=== PATIENT | male | born 1950 | race Caucasian/White ===

== ENCOUNTER → 2017-01-23 | Outpatient (CLI) | payer MEDICARE, OTHER ==
[~2017-01-23] MED LIST: ADVAIR 250/28 DISKUS IH; ALDACTONE 25MG25 M1 PO; ALDACTONE 25MG25 MG PO; AMLOPIDINE PO; AMOXICILLIN 50500 MG PO; ASPIRIN 32325 MG/TAB PO; ASPIRIN 81M81 MG/TA2 PO; B-121000 MCG PO; CARAFATE 1GM1 G PO; CATAPRES 0.1MG0.1 MG PO; CATAPRES0.2 MG PO; CELEBREX 200MG200 MG PO; CIPRO 500MG TA500 MG PO; COREG CR40 MG PO; COREG CR80 MG PO; COZAAR100 MG PO; DEMADEX 20MG20 M1 PO; DEMADEX 20MG20 MG PO; DEPO-TESTOS200 MG/M1 IM; DIOVAN 160MG160 MG PO; DIOVAN320 MG PO; FISH OIL CONC1000 MG PO; GLIPIZIDE5 MG PO; GLUCOPHAGE XR500 M1 PO; GLUCOPHAGE1000 MG PO; GLUCOTROL 5M5 MG/TAB; JANUVIA50 MG PO; KEFLEX750 MG PO; LANTUS SOLOS100 U/ML SQ; LANTUS100 U/ML SQ; LIPITOR 40MG TA40 MG PO; LIPITOR40 MG PO; MELAT3MGTAB PO; METFORMIN HCL1000 MG PO; MVI PO; NEXIUM 40MG40 MG PO; NEXIUM40 MG PO; NITROSTAT0.4 MG/TAB SL; NORCO 325 MG-7.1 TAB PO; NORVASC 10MG10 MG PO; PLAVIX 75MG TAB75 MG PO; PRESERVISION1 SGL PO; PRILOSEC 20MG20 MG PO; QUININE SULFAT324 MG PO; RT ADVAIR 228 DISKUS IH; SPIRIVA RE2.5 MCG/Ac IH; TRICOR145 MG PO; TRIGLIDE PO; TYLENOL 325MG325 MG PO; TYLENOL W/COD1 UDTAB PO; ULTRAM 50MG TAB50 MG PO; ULTRAM50 MG PO; UROXATRAL10 M1 PO; VIAGRA100 M1 PO; VIAGRA100 MG PO; VITAMIN B12; VITAMIN C500 MG PO; VITAMIN D31000 I1 PO; ZETIA 10MG TAB10 MG PO; ZETIA10 MG PO
== END ==
LOC: COL.RAD 07:56
DX: M25.512 Pain in left shoulder (principal); M25.511 Pain in right shoulder
CPT/HCPCS: J3301; Q9967

== ENCOUNTER → 2017-05-19 | Outpatient (CLI) | payer MEDICARE, OTHER | LOC: COL.RAD 08:04 | DX: M19.011 Primary osteoarthritis, right shoulder (principal); M19.012 Primary osteoarthritis, left shoulder | CPT/HCPCS: J3301; Q9967 ==

== ENCOUNTER 2017-05-25 07:19 | Outpatient (CLI) | payer MEDICARE, OTHER ==
[~2017-05-25] VITALS: Ht 180.3 cm; Wt 99.5 kg
[2017-05-25] VITALS (17 sets, daily range): BP systolic 131–190; BP diastolic 82–95; PULSE 59–71; TEMP 96.7–97.9
[~2017-05-25 07:19] MED LIST changes: -GLUCOPHAGE XR500 M1 PO; -JANUVIA50 MG PO; -LANTUS SOLOS100 U/ML SQ; -PLAVIX 75MG TAB75 MG PO; -PRESERVISION1 SGL PO; -PRILOSEC 20MG20 MG PO; -SPIRIVA RE2.5 MCG/Ac IH; -TYLENOL 325MG325 MG PO
[2017-05-25] MEDS ORDERED: LANTUS SOLOS100 U/ML SQ (08:09)
[2017-05-25] MEDS ORDERED: GLUCOPHAGE XR500 M1 PO (08:12)
[2017-05-25] MEDS ORDERED: TYLENOL 325MG325 MG PO (08:14)
[2017-05-25] MEDS ORDERED: PLAVIX 75MG TAB75 MG PO (08:17)
[2017-05-25] MEDS ORDERED: PRESERVISION1 SGL PO (08:18)
[2017-05-25] MEDS ORDERED: PRILOSEC 20MG20 MG PO (08:20)
[2017-05-25] MEDS ORDERED: JANUVIA50 MG PO (08:20)
[2017-05-25] MEDS ORDERED: SPIRIVA RE2.5 MCG/Ac IH (08:22)
[2017-05-25 08:24] LABS: HEMOGLOBIN 12.2 g/dl (13.5-18.0); MEAN CELL VOLUME 91 fl (80.0-100.0); MEAN CORPUSCULAR HEMOGLOBIN 30 pg (27.0-31.0); MEAN CORPUSCULAR HGB CONC 33 g/dl (33.0-37.0); MEAN PLATELET VOLUME 9.8 fl (7.4-10.4); PLATELET COUNT 196 K/mm3 (130-400); RED BLOOD COUNT 4.05 M/mm3 (4.20-5.60); REDCELL DISTRIBUTION WIDTH-CV 13.1 % (11.5-14.5); WHITE BLOOD COUNT 6.9 K/mm3 (4.8-10.8)
[2017-05-25 08:29] LABS: HEMATOCRIT 36.8 % (42.0-52.0)
[2017-05-25 08:31] LABS: CALCIUM 8.8 mg/dL (8.4-10.2); CREATININE, serum 0.96 mg/dL (0.66-1.25); POTASSIUM 4.5 mmol/L (3.4-5.0)
[2017-05-25 08:32] LABS: PROTHROMBIN TIME 11.4 SECONDS (9.7-12.8)
== END 2017-05-25 12:00 | disposition home or self-care (01) ==
LOC: EUO 07:19 → COL.RAD 07:30 → EUO 12:00
PROVIDERS: Internal Medicine Cardiovascular Disease
DX: M19.012 Primary osteoarthritis, left shoulder (principal)
CPT/HCPCS: J2175; J2250

== ENCOUNTER 2017-06-23 14:33 | Emergency (ER) | payer MEDICARE, OTHER ==
[~2017-06-23] VITALS: Ht 180.3 cm; Wt 101.8 kg
[~2017-06-23 14:33] MED LIST changes: +GLUCOPHAGE XR500 M1 PO; +JANUVIA50 MG PO; +LANTUS SOLOS100 U/ML SQ; +PLAVIX 75MG TAB75 MG PO; +PRESERVISION1 SGL PO; +PRILOSEC 20MG20 MG PO; +SPIRIVA RE2.5 MCG/Ac IH; +TYLENOL 325MG325 MG PO
[2017-06-23 14:42] VITALS: BP 124/70; TEMP 98.2
[2017-06-23 16:10] LABS: BASO % 0.5 % (0.0-2.0); EOS # 0.1 (0.0-0.7); EOS % 1.9 % (0-4.0); GRAN # 3.9 (1.4-6.5); GRAN % 65.9 % (42.2-75.2); HEMATOCRIT 34.1 % (42.0-52.0); HEMOGLOBIN 11.2 g/dl (13.5-18.0); LYMPH # 1.4 (1.2-3.4); LYMPH % 23.1 % (20.0-51.0); MEAN CELL VOLUME 90 fl (80.0-100.0); MEAN CORPUSCULAR HEMOGLOBIN 30 pg (27.0-31.0); MEAN CORPUSCULAR HGB CONC 33 g/dl (33.0-37.0); MEAN PLATELET VOLUME 9.7 fl (7.4-10.4); MONO # 0.5 (0.1-0.6); MONO % 8.4 % (1.7-9.3); PLATELET COUNT 203 K/mm3 (130-400); RED BLOOD COUNT 3.78 M/mm3 (4.20-5.60); REDCELL DISTRIBUTION WIDTH-CV 13.3 % (11.5-14.5); WHITE BLOOD COUNT 5.8 K/mm3 (4.8-10.8)
[2017-06-23 16:16] LABS: ADJUSTED CALCIUM 9.2 mg/dL (8.4-10.2); BILIRUBIN,TOTAL 0.6 mg/dL (0.0-1.0); CALCIUM 9.2 mg/dL (8.4-10.2); CREATININE, serum 2.51 mg/dL (0.66-1.25); MAGNESIUM 1.6 mg/dL (1.6-2.3); PHOSPHOROUS 3.9 mg/dL (2.5-4.5); POTASSIUM 4.2 mmol/L (3.4-5.0); TOTAL PROTEIN 6.6 gm/dL (6.4-8.2)
[2017-06-23 16:30] LABS: ERYTHROCYTE SEDIMENTATION RATE 15 mm/hr (0-30)
[2017-06-23 17:24] LABS: PH 5 (5-8); SQUAMOUS EPITHELIAL 0-2 /hpf; URINE APPEARANCE Clear; URINE BACTERIA None Seen /hpf; URINE BILIRUBIN Negative (NEGATIVE); URINE BLOOD Negative (NEGATIVE); URINE COLOR Yellow; URINE GLUCOSE Negative (NEGATIVE); URINE KETONE Negative (NEGATIVE); URINE RBC 0-2 /hpf; URINE UROBILINOGEN Negative (NEGATIVE); URINE WBC 0-2 /hpf
[2017-06-23 19:04] VITALS: PULSE 70
== END 2017-06-23 19:08 | disposition home or self-care (01) ==
LOC: COL.ER 14:33
PROVIDERS: Emergency Medicine
DX: N17.9 Acute kidney failure, unspecified (principal); I13.0 Hypertensive heart and chronic kidney disease with heart failure and stage 1 through stage 4 chronic kidney disease, or unspecified chronic kidney disease; N18.9 Chronic kidney disease, unspecified; I50.9 Heart failure, unspecified; E11.22 Type 2 diabetes mellitus with diabetic chronic kidney disease; Z79.82 Long term (current) use of aspirin; Z79.84 Long term (current) use of oral hypoglycemic drugs; Z95.0 Presence of cardiac pacemaker
CPT/HCPCS: J7050

== ENCOUNTER 2017-07-26 13:46 | Observation (INO) | payer MEDICARE, OTHER ==
[~2017-07-26] VITALS: Ht 180.3 cm; Wt 98.7 kg
[2017-07-26 15:05] VITALS: BP 115/60; PULSE 72; TEMP 97.8
[2017-07-26] MEDS ORDERED: ULTRAM 50MG TAB50 MG PO (15:19)
[2017-07-26 20:26] VITALS: BP 131/65; PULSE 77; TEMP 99
[2017-07-26 23:46] VITALS: BP 145/74; PULSE 69; TEMP 97.9
[2017-07-27] VITALS (23 sets, daily range): BP systolic 107–154; BP diastolic 53–104; PULSE 62–71; TEMP 97.7–98.8
[2017-07-27 06:51] LABS: BASO % 0.4 % (0.0-2.0); EOS # 0.2 (0.0-0.7); EOS % 2.8 % (0-4.0); GRAN # 4.9 (1.4-6.5); GRAN % 62.1 % (42.2-75.2); LYMPH # 1.8 (1.2-3.4); LYMPH % 22.3 % (20.0-51.0); MEAN CELL VOLUME 90 fl (80.0-100.0); MEAN CORPUSCULAR HGB CONC 32 g/dl (33.0-37.0); MEAN PLATELET VOLUME 9.7 fl (7.4-10.4); PLATELET COUNT 199 K/mm3 (130-400); RED BLOOD COUNT 3.73 M/mm3 (4.20-5.60); WHITE BLOOD COUNT 7.9 K/mm3 (4.8-10.8)
[2017-07-27 06:59] LABS: HEMATOCRIT 33.6 % (42.0-52.0); HEMOGLOBIN 10.9 g/dl (13.5-18.0); MEAN CORPUSCULAR HEMOGLOBIN 29 pg (27.0-31.0)
[2017-07-27 07:14] LABS: ADJUSTED CALCIUM 9.5 mg/dL (8.4-10.2); ALANINE AMINOTRANSFERASE 22 U/L (21-72); ALBUMIN 3.8 gm/dL (3.5-5.0); ALKALINE PHOSPHATASE 76 U/L (50-136); ANION GAP 11 mmol/L (7-16); BILIRUBIN,TOTAL 0.8 mg/dL (0.0-1.0); BLOOD UREA NITROGEN 27 mg/dL (9-20); CALCIUM 9.3 mg/dL (8.4-10.2); CARBON DIOXIDE 24 mmol/L (22-30); CHLORIDE 106 mmol/L (98-107); CHOLESTEROL 102 mg/dL (120-200); CREATININE, serum 1.58 mg/dL (0.66-1.25); GLUCOSE 115 mg/dL (74-106); HDL CHOLESTEROL 22 mg/dL; LDL CHOLESTEROL 13 mg/dL; MAGNESIUM 1.7 mg/dL (1.6-2.3); POTASSIUM 4.2 mmol/L (3.4-5.0); SODIUM 141 mmol/L (137-145); TOTAL PROTEIN 6.6 gm/dL (6.4-8.2); TRIGLYCERIDE 336 mg/dL
[2017-07-27 07:26] LABS: TROPONIN-I < 0.012 ng/mL (0.000-0.034)
[2017-07-27 08:03] LABS: INR 1.3 (0.8-3.0); PROTHROMBIN TIME 15.1 SECONDS (9.7-12.8)
[2017-07-27 08:05] LABS: PARTIAL THROMBOPLASTIN TIME 35.8 SECONDS (26.0-37.0)
[2017-07-27 08:38] LABS: PH 5 (5-8); SQUAMOUS EPITHELIAL None Seen /hpf; URINE APPEARANCE Clear; URINE BACTERIA Many /hpf; URINE BILIRUBIN Negative (NEGATIVE); URINE BLOOD Negative (NEGATIVE); URINE COLOR Yellow; URINE GLUCOSE Negative (NEGATIVE); URINE KETONE Negative (NEGATIVE); URINE UROBILINOGEN Negative (NEGATIVE)
[2017-07-27] MEDS ORDERED: MULTAQ400 MG PO (09:43)
[2017-07-27] MEDS ORDERED: ELIQUIS 2.5 PO (09:43)
[2017-07-28 00:11] VITALS: BP 107/53; PULSE 69; TEMP 98.8
[2017-07-28 03:22] VITALS: BP 106/56; PULSE 64; TEMP 98.3
[2017-07-28 05:55] VITALS: BP 106/56; PULSE 64; TEMP 98.3
[2017-07-28 08:02] LABS: BASO % 0.6 % (0.0-2.0); EOS # 0.2 (0.0-0.7); EOS % 3.7 % (0-4.0); GRAN # 3.6 (1.4-6.5); GRAN % 55.1 % (42.2-75.2); LYMPH # 1.8 (1.2-3.4); MEAN CELL VOLUME 91 fl (80.0-100.0); MEAN CORPUSCULAR HGB CONC 32 g/dl (33.0-37.0); MEAN PLATELET VOLUME 10.2 fl (7.4-10.4); MONO # 0.8 (0.1-0.6); MONO % 12.1 % (1.7-9.3); PLATELET COUNT 201 K/mm3 (130-400); RED BLOOD COUNT 3.84 M/mm3 (4.20-5.60); WHITE BLOOD COUNT 6.4 K/mm3 (4.8-10.8)
[2017-07-28 08:07] VITALS: BP 121/56; PULSE 66; TEMP 98.6
[2017-07-28 08:10] LABS: HEMATOCRIT 34.9 % (42.0-52.0); HEMOGLOBIN 11.2 g/dl (13.5-18.0); MEAN CORPUSCULAR HEMOGLOBIN 29 pg (27.0-31.0)
[2017-07-28 08:18] LABS: CALCIUM 9.1 mg/dL (8.4-10.2); CREATININE, serum 1.76 mg/dL (0.66-1.25); MAGNESIUM 1.9 mg/dL (1.6-2.3); POTASSIUM 4.4 mmol/L (3.4-5.0)
[2017-07-28 11:35] VITALS: BP 118/59; PULSE 62; TEMP 98
[2017-07-28] MEDS ORDERED: SEPTRA DS 8001 TAB PO (12:30)
[2017-07-28] MEDS ORDERED: COLCRYS0.6 MG PO (12:30)
== END 2017-07-28 14:12 | disposition home or self-care (01) ==
LOC: MEDICAL 13:46
PROVIDERS: Internal Medicine; Internal Medicine Cardiovascular Disease; Nurse Practitioner Family
DX: R07.89 Other chest pain (principal); I25.10 Atherosclerotic heart disease of native coronary artery without angina pectoris; I48.91 Unspecified atrial fibrillation; M25.572 Pain in left ankle and joints of left foot; N39.0 Urinary tract infection, site not specified; N41.9 Inflammatory disease of prostate, unspecified; Z95.0 Presence of cardiac pacemaker; R00.1 Bradycardia, unspecified; R51 Headache; J44.9 Chronic obstructive pulmonary disease, unspecified; G47.33 Obstructive sleep apnea (adult) (pediatric); I95.1 Orthostatic hypotension; R42 Dizziness and giddiness; K21.9 Gastro-esophageal reflux disease without esophagitis; I34.0 Nonrheumatic mitral (valve) insufficiency; I34.1 Nonrheumatic mitral (valve) prolapse; Z98.84 Bariatric surgery status; E66.9 Obesity, unspecified; Z85.9 Personal history of malignant neoplasm, unspecified; M77.32 Calcaneal spur, left foot; Z87.891 Personal history of nicotine dependence; N17.9 Acute kidney failure, unspecified; E11.22 Type 2 diabetes mellitus with diabetic chronic kidney disease; I12.9 Hypertensive chronic kidney disease with stage 1 through stage 4 chronic kidney disease, or unspecified chronic kidney disease; N18.9 Chronic kidney disease, unspecified; E11.40 Type 2 diabetes mellitus with diabetic neuropathy, unspecified; Z86.73 Personal history of transient ischemic attack (TIA), and cerebral infarction without residual deficits; E78.5 Hyperlipidemia, unspecified; Q21.1 Atrial septal defect
CPT/HCPCS: 99232-AI; C1760; C1894; G0378; G0379; G8978-GP; G8979-GP; J2250; J3010; Q9967

== ENCOUNTER → 2017-08-31 | Outpatient (CLI) | payer MEDICARE, OTHER ==
[~2017-08-31] MED LIST changes: +COLCRYS0.6 MG PO; +ELIQUIS 2.5 PO; +MULTAQ400 MG PO; +SEPTRA DS 8001 TAB PO
== END ==
LOC: COL.RAD 09:25
DX: M19.011 Primary osteoarthritis, right shoulder (principal); M19.012 Primary osteoarthritis, left shoulder
CPT/HCPCS: J3301; Q9967

== ENCOUNTER → 2017-12-07 | Outpatient (CLI) | payer MEDICARE, OTHER | LOC: COL.RAD 07:32 | DX: M19.012 Primary osteoarthritis, left shoulder (principal); M19.011 Primary osteoarthritis, right shoulder | CPT/HCPCS: J3301; Q9967 ==

== ENCOUNTER 2018-01-10 10:17 | Inpatient (IN) | payer MEDICARE, OTHER ==
[~2018-01-10] VITALS: Ht 180.3 cm; Wt 104.0 kg
[2018-02-26] VITALS (9 sets, daily range): BP systolic 108–131; BP diastolic 53–70; PULSE 63–91; TEMP 97.9–98.5
[2018-02-26 17:16] LABS: BASO % 0.2 % (0.0-2.0); GRAN # 9.4 (1.4-6.5); GRAN % 87.8 % (42.2-75.2); HEMATOCRIT 37.7 % (42.0-52.0); HEMOGLOBIN 12.5 g/dl (13.5-18.0); LYMPH % 8.9 % (20.0-51.0); MEAN CELL VOLUME 91 fl (80.0-100.0); MEAN CORPUSCULAR HEMOGLOBIN 30 pg (27.0-31.0); MEAN CORPUSCULAR HGB CONC 33 g/dl (33.0-37.0); MEAN PLATELET VOLUME 9.7 fl (7.4-10.4); MONO # 0.3 (0.1-0.6); MONO % 2.8 % (1.7-9.3); PLATELET COUNT 167 K/mm3 (130-400); RED BLOOD COUNT 4.15 M/mm3 (4.20-5.60); REDCELL DISTRIBUTION WIDTH-CV 13.7 % (11.5-14.5)
[2018-02-26 17:23] LABS: ALBUMIN 3.8 gm/dL (3.5-5.0); BILIRUBIN,TOTAL 0.3 mg/dL (0.0-1.0); CALCIUM 8.9 mg/dL (8.4-10.2); CREATININE, serum 1.61 mg/dL (0.66-1.25); POTASSIUM 5.2 mmol/L (3.4-5.0); TOTAL PROTEIN 6.7 gm/dL (6.4-8.2)
[2018-02-27 00:25] VITALS: BP 11/64; BP 113/64; PULSE 82; TEMP 98.4
[2018-02-27 04:42] VITALS: BP 125/53; PULSE 74; TEMP 98.1
[2018-02-27 06:16] LABS: BASO % 0.1 % (0.0-2.0); GRAN # 10.3 (1.4-6.5); HEMATOCRIT 33.4 % (42.0-52.0); LYMPH # 1.1 (1.2-3.4); LYMPH % 8.6 % (20.0-51.0); MEAN CELL VOLUME 92 fl (80.0-100.0); MEAN CORPUSCULAR HEMOGLOBIN 30 pg (27.0-31.0); MEAN CORPUSCULAR HGB CONC 33 g/dl (33.0-37.0); MEAN PLATELET VOLUME 10.1 fl (7.4-10.4); MONO # 0.9 (0.1-0.6); MONO % 6.9 % (1.7-9.3); PLATELET COUNT 163 K/mm3 (130-400); RED BLOOD COUNT 3.62 M/mm3 (4.20-5.60); REDCELL DISTRIBUTION WIDTH-CV 13.4 % (11.5-14.5)
[2018-02-27 06:24] LABS: CALCIUM 8.5 mg/dL (8.4-10.2); CREATININE, serum 1.49 mg/dL (0.66-1.25); POTASSIUM 4.6 mmol/L (3.4-5.0)
[2018-02-27 07:59] VITALS: BP 140/74; PULSE 90; TEMP 99.4
[2018-02-27 11:27] VITALS: BP 117/52; PULSE 69; TEMP 97.9
[2018-02-27 15:46] VITALS: BP 130/60; PULSE 70; TEMP 97.6
[2018-02-27 20:48] VITALS: BP 145/61; PULSE 65; TEMP 97.9
[2018-02-28 00:16] VITALS: BP 123/75; PULSE 60; TEMP 97.9
[2018-02-28 04:45] VITALS: BP 152/80; PULSE 71; TEMP 98.2
[2018-02-28 07:50] VITALS: BP 136/62; PULSE 59; TEMP 97.8
[2018-02-28 11:30] VITALS: BP 112/59; PULSE 61; TEMP 98.4
[2018-02-28] MEDS ORDERED: NORCO 325 MG-7.1 TAB PO (15:02)
[2018-02-28] MEDS ORDERED: ROXICODONE 55 MG/TAB PO (15:04)
[2018-02-28] MEDS ORDERED: COLCRYS0.6 MG PO (15:16)
[2018-02-28 15:43] VITALS: BP 102/55; PULSE 61; TEMP 98.1
== END 2018-02-28 16:44 | disposition home health service (06) | DRG 483 ==
LOC: JCC 02-26 06:32
PROVIDERS: Orthopaedic Surgery; Physician Assistant
PROC: 0RRK0JZ Replacement of Left Shoulder Joint with Synthetic Substitute, Open Approach (ICD-10-PCS; principal; 2018-02-26 10:15)
DX: M19.012 Primary osteoarthritis, left shoulder (principal); Q21.1 Atrial septal defect; I12.9 Hypertensive chronic kidney disease with stage 1 through stage 4 chronic kidney disease, or unspecified chronic kidney disease; E11.22 Type 2 diabetes mellitus with diabetic chronic kidney disease; N18.9 Chronic kidney disease, unspecified; I48.91 Unspecified atrial fibrillation; E11.42 Type 2 diabetes mellitus with diabetic polyneuropathy; I25.10 Atherosclerotic heart disease of native coronary artery without angina pectoris; J44.9 Chronic obstructive pulmonary disease, unspecified; Z95.0 Presence of cardiac pacemaker; Z79.01 Long term (current) use of anticoagulants; Z87.891 Personal history of nicotine dependence; M10.9 Gout, unspecified; E87.5 Hyperkalemia; Z85.828 Personal history of other malignant neoplasm of skin
CPT/HCPCS: 99222; 99232-AI; A4314; C1713; C1776; J0171; J0330; J0690; J1100; J1815; J1940; J2250; J2405; J2704; J2710; J2795; J3010; J7030

== ENCOUNTER → 2018-02-01 | Outpatient (CLI) | payer MEDICARE, OTHER | LOC: COL.RAD 07:01 | DX: M19.012 Primary osteoarthritis, left shoulder (principal); Z95.0 Presence of cardiac pacemaker ==

== ENCOUNTER → 2018-02-15 | Outpatient (CLI) | payer MEDICARE, OTHER ==
[2018-02-15 10:27] LABS: HIV 1/2 Antibodies Non-Reactive; HIV-1p24 Antigen Non-Reactive
== END ==
LOC: COL.LAB 09:31
PROVIDERS: Orthopaedic Surgery
DX: Z01.812 Encounter for preprocedural laboratory examination (principal); M19.012 Primary osteoarthritis, left shoulder

== ENCOUNTER 2018-06-08 09:12 | Inpatient (IN) | payer MEDICARE, OTHER ==
[~2018-06-08] VITALS: Ht 180.3 cm; Wt 116.1 kg
[~2018-06-08 09:12] MED LIST changes: +ROXICODONE 55 MG/TAB PO
[2018-06-11 09:51] VITALS: BP 153/82; PULSE 61; TEMP 97.4
[2018-06-11] MEDS ORDERED: COLACE 100100 MG/CAP PO (10:20)
[2018-06-11 10:21] LABS: BASO # 0.1 (0.0-0.2); BASO % 0.6 % (0.0-2.0); EOS # 0.2 (0.0-0.7); EOS % 1.8 % (0-4.0); GRAN # 6.3 (1.4-6.5); GRAN % 70.2 % (42.2-75.2); HEMATOCRIT 42.4 % (42.0-52.0); HEMOGLOBIN 13.7 g/dl (13.5-18.0); LYMPH # 1.7 (1.2-3.4); LYMPH % 18.9 % (20.0-51.0); MEAN CELL VOLUME 92 fl (80.0-100.0); MEAN CORPUSCULAR HEMOGLOBIN 30 pg (27.0-31.0); MEAN CORPUSCULAR HGB CONC 32 g/dl (33.0-37.0); MEAN PLATELET VOLUME 10.2 fl (7.4-10.4); MONO # 0.7 (0.1-0.6); MONO % 8.2 % (1.7-9.3); PLATELET COUNT 189 K/mm3 (130-400); RED BLOOD COUNT 4.63 M/mm3 (4.20-5.60); REDCELL DISTRIBUTION WIDTH-CV 13.7 % (11.5-14.5)
[2018-06-11] MEDS ORDERED: TYLENOL 325MG325 MG PO (10:21)
[2018-06-11] MEDS ORDERED: FLOMAX 0.40.4 MG/CAP PO (10:21)
[2018-06-11] MEDS ORDERED: VITAMIN C500 MG PO (10:24)
[2018-06-11 10:30] LABS: INR 1.2 (0.8-3.0); PROTHROMBIN TIME 13.5 SECONDS (9.7-12.8)
[2018-06-11 10:41] LABS: ALBUMIN 4.4 gm/dL (3.5-5.0); BILIRUBIN,TOTAL 0.5 mg/dL (0.0-1.0); CALCIUM 9.6 mg/dL (8.4-10.2); CREATININE, serum 1.58 mg/dL (0.66-1.25); POTASSIUM 4.8 mmol/L (3.4-5.0); TOTAL PROTEIN 7.5 gm/dL (6.4-8.2)
[2018-06-11 12:10] VITALS: BP 143/78; PULSE 65; TEMP 98.2
[2018-06-11 16:25] VITALS: BP 154/70; PULSE 64; TEMP 98.2
[2018-06-11 20:04] VITALS: BP 134/65; PULSE 62; TEMP 98.4
[2018-06-11 23:53] VITALS: BP 127/75; PULSE 60; TEMP 97.6
[2018-06-12 04:12] VITALS: BP 128/52; PULSE 56; TEMP 99.3
[2018-06-12 07:20] VITALS: BP 127/61; PULSE 59; TEMP 98.4
[2018-06-12 11:07] VITALS: BP 123/55; PULSE 59; TEMP 97.8
[2018-06-12 16:19] VITALS: BP 140/66; PULSE 59; TEMP 98.5
[2018-06-12 19:36] VITALS: BP 116/62; PULSE 62; TEMP 98.6
[2018-06-13 00:38] VITALS: BP 123/66; PULSE 60; TEMP 97.3
[2018-06-13 05:13] VITALS: BP 109/52; PULSE 56; TEMP 98
[2018-06-13 07:36] VITALS: BP 129/66; PULSE 58; TEMP 97.9
[2018-06-13] MEDS ORDERED: BETAPACE 80MG80 MG PO (11:11)
[2018-06-13 11:33] VITALS: BP 129/68; PULSE 60; TEMP 97.8
== END 2018-06-13 12:04 | disposition home or self-care (01) | DRG 309 ==
LOC: MEDICAL 06-11 09:11
PROVIDERS: Internal Medicine Cardiovascular Disease
DX: I48.0 Paroxysmal atrial fibrillation (principal); Q21.1 Atrial septal defect; Z95.0 Presence of cardiac pacemaker; I25.10 Atherosclerotic heart disease of native coronary artery without angina pectoris; I12.9 Hypertensive chronic kidney disease with stage 1 through stage 4 chronic kidney disease, or unspecified chronic kidney disease; E11.22 Type 2 diabetes mellitus with diabetic chronic kidney disease; N18.9 Chronic kidney disease, unspecified; I34.0 Nonrheumatic mitral (valve) insufficiency; E11.42 Type 2 diabetes mellitus with diabetic polyneuropathy; J44.9 Chronic obstructive pulmonary disease, unspecified; Z87.891 Personal history of nicotine dependence; Z85.828 Personal history of other malignant neoplasm of skin

== ENCOUNTER 2018-10-17 10:50 | Inpatient (IN) | payer MEDICARE, OTHER ==
[~2018-10-17] VITALS: Ht 180.3 cm; Wt 115.0 kg
[2018-10-17] VITALS (9 sets, daily range): BP systolic 103–145; BP diastolic 54–81; PULSE 58–70; TEMP 98–99
[~2018-10-17 10:50] MED LIST changes: +BETAPACE 80MG80 MG PO; +COLACE 100100 MG/CAP PO; +FLOMAX 0.40.4 MG/CAP PO
[2018-10-17] MEDS ORDERED: MULTIPLE VITAMI1 CAP PO (11:50)
[2018-10-18] VITALS: BP 127/65; PULSE 64; TEMP 97.9
[2018-10-18 03:12] VITALS: BP 129/65; PULSE 60; TEMP 98.4
[2018-10-18 08:01] VITALS: BP 131/61; PULSE 60; TEMP 98.6
[2018-10-18 12:38] VITALS: BP 131/59; PULSE 60; TEMP 98.4
[2018-10-18 16:06] VITALS: BP 112/57; PULSE 60; TEMP 97.8
[2018-10-18 19:58] VITALS: BP 133/58; PULSE 60; TEMP 98.3
[2018-10-19] VITALS (8 sets, daily range): BP systolic 107–146; BP diastolic 49–92; PULSE 60–78; TEMP 97.2–98.8
[2018-10-20 00:14] VITALS: BP 125/61; PULSE 69; TEMP 98.1
[2018-10-20 03:55] VITALS: BP 121/58; PULSE 63; TEMP 96.8
[2018-10-20 08:00] VITALS: BP 121/61; PULSE 76; TEMP 98.3
[2018-10-20 11:58] VITALS: BP 118/57; PULSE 69; TEMP 98.6
[2018-10-20 12:09] VITALS: BP 96/51; PULSE 99; TEMP 97.7
== END 2018-10-20 13:00 | disposition home or self-care (01) | DRG 699 ==
LOC: SURG 10:50 → SDCO 10:50 → SURG 16:16 → SDCO 10-19 10:28 → SURG 10-19 10:29
PROVIDERS: Urology
PROC: 0VB08ZX Excision of Prostate, Via Natural or Artificial Opening Endoscopic, Diagnostic (ICD-10-PCS; principal; 2018-10-17 13:00)
PROC: 0TCB8ZZ Extirpation of Matter from Bladder, Via Natural or Artificial Opening Endoscopic (ICD-10-PCS; 2018-10-19)
DX: N32.89 Other specified disorders of bladder (principal); I13.0 Hypertensive heart and chronic kidney disease with heart failure and stage 1 through stage 4 chronic kidney disease, or unspecified chronic kidney disease; I50.32 Chronic diastolic (congestive) heart failure; N40.1 Benign prostatic hyperplasia with lower urinary tract symptoms; N13.8 Other obstructive and reflux uropathy; N31.2 Flaccid neuropathic bladder, not elsewhere classified; R35.0 Frequency of micturition; R39.15 Urgency of urination; I48.91 Unspecified atrial fibrillation; N18.9 Chronic kidney disease, unspecified; E11.22 Type 2 diabetes mellitus with diabetic chronic kidney disease; J44.9 Chronic obstructive pulmonary disease, unspecified; E78.5 Hyperlipidemia, unspecified; Z87.891 Personal history of nicotine dependence
CPT/HCPCS: OP; J0690; J1100; J2270; J2405; J2704; J3010; J3480; J7030

== ENCOUNTER → 2019-03-22 | Outpatient (CLI) | payer MEDICARE, OTHER ==
[~2019-03-22] MED LIST changes: +MULTIPLE VITAMI1 CAP PO
== END ==
LOC: COL.RAD 07:39
DX: M19.011 Primary osteoarthritis, right shoulder (principal)
CPT/HCPCS: J3301; Q9967

== ENCOUNTER → 2019-12-17 | Outpatient (CLI) | payer MEDICARE, OTHER | LOC: COL.RAD 12:32 | DX: M19.011 Primary osteoarthritis, right shoulder (principal) | CPT/HCPCS: J3301; Q9967 ==

== ENCOUNTER → 2019-12-31 | Outpatient (CLI) | payer MEDICARE, OTHER | LOC: COL.RAD 09:38 | DX: M16.12 Unilateral primary osteoarthritis, left hip (principal) | CPT/HCPCS: J3301; Q9967 ==

== ENCOUNTER → 2020-07-30 | Outpatient (CLI) | payer MEDICARE, OTHER | LOC: COL.RAD 10:00 | DX: M19.011 Primary osteoarthritis, right shoulder (principal); M67.813 Other specified disorders of tendon, right shoulder; M75.111 Incomplete rotator cuff tear or rupture of right shoulder, not specified as traumatic ==

== ENCOUNTER 2020-08-04 13:36 | Inpatient (IN) | payer MEDICARE, OTHER ==
[~2020-08-04] VITALS: Ht 180.3 cm; Wt 120.0 kg
[~2020-08-04 13:36] MED LIST changes: -MELAT3MGTAB PO; +MELATIN 3 MG-11 TAB PO
[2020-09-07] MEDS ORDERED: LASIX 20MG TABL20 MG PO (22:27)
[2020-09-07] MEDS ORDERED: ASPIRIN E.C. 8181 MG PO (22:32)
[2020-09-07] MEDS ORDERED: TYLENOL W/COD1 UDTAB PO (22:38)
[2020-09-08] VITALS (13 sets, daily range): BP systolic 127–167; BP diastolic 58–77; PULSE 59–68; TEMP 98–99
[2020-09-08] MEDS ORDERED: CENTRUM SILVER1 CTB PO (01:40)
[2020-09-08] MEDS ORDERED: ELIQUIS 2.5 PO (01:42)
[2020-09-08] MEDS ORDERED: ALDACTONE 25MG25 M1 PO (01:44)
[2020-09-08] MEDS ORDERED: LAMICTAL 100MG100 MG PO (01:47)
[2020-09-08] MEDS ORDERED: HCTZ12.5TAB (01:48)
[2020-09-08] MEDS ORDERED: LAMICTAL XR50 MG PO (01:56)
[2020-09-08] MEDS ORDERED: LAMICTAL XR100 MG PO (01:56)
[2020-09-08] MEDS ORDERED: JANUVIA 100MG100 MG PO (01:58)
--- NOTE | 2020-09-08 06:10 | NUR ---
Pt arrived to the floor and is now in bed. Pt has no concerns at this time. He did state that he has pain in his shoulder and back but this it nothing new he stated.
--- NOTE | 2020-09-08 09:55 | NUR ---
Patient up from OR by bed. Alert and oriented x 3. Assessment complete. RUE with sling, Aquacell to shoulder is CDI. Patient denies pain at this time. On 3L of O2 on arrival to room. Patient tolerating ice chips. Denies further needs at this time.
--- NOTE | 2020-09-08 10:51 | NUR ---
First visit from the lift mechanic. No needs right now.
--- NOTE | 2020-09-08 12:30 | NUR ---
Patient up to recliner for lunch with stand by assist. Denies further needs at this time.
--- NOTE | 2020-09-08 13:33 | NUR ---
Mail Messenger met with patient to discuss discharge planning. Patient lives alone outside of [place] and advised his son Tarik (ph#[phone]) and daughter in law Lanie (ph#[phone]) live about a mile from him. Patient receives primary care and medications from [facility] with no reported difficulties. Patient does not use any DME and reports independence with ADLS. Patient is unsure how he will do after his surgery. Patient had DPOA-HC on file which designates his son Tarik and daughter, Becky. Patient's , Macie is still listed as primary. Patient plans to return home upon discharge if able. Patient states his son Tarik is at work but that Tarik's , Lanie would be a good point of contact for him. ELIDA contacted Lanie who confirmed she and Tarik live close by. ELIDA advised she would be here to assist with any discharge needs. ELIDA will continue to follow.
--- NOTE | 2020-09-08 18:10 | NUR ---
Contacted Kenji ALLEN, patient continues having pain to right shoulder. New order for toradol entered. Medication given per orders. Denies further needs at this time. Will continue to monitor.
--- NOTE | 2020-09-08 18:29 | NUR ---
Patient complains of pain to right shoulder, medications have been given per orders. Sat up in recliner for lunch and ambulated in room with stand by assist. Daughter in law in to see patient this afternoon. Patient tolerating diet without complications. IV to INT. Denies further needs at this time. Will report off to retail shift leader.
--- NOTE | 2020-09-08 19:00 | NUR ---
Received report from THEO Nichols. Pt currently sitting up in bed. Pt stated that he was in some pain. Pt was told when he could have pain medicaiton and that as soon as he was able we would bring him medicaiton. Pt has his call light sierra kumar.
--- NOTE | 2020-09-09 00:28 | NUR ---
Pt currently resting in bed. Pt daughter in law Lanie called has called twice to check to see how he was doing. Pt stated that his pain is better than it was. Pt has ice to his shoulder. Pt did have some redness around the dressing which is where the ice was. Ice was taking off for a little while to see if the redness did improve. It did improve. Pt has his call light within reach and has everything within reach with his left arm.
[2020-09-09 04:00] VITALS: BP 133/67; PULSE 61; TEMP 98.7
--- NOTE | 2020-09-09 05:53 | NUR ---
Pt is currently resting in bed. Pt has slept quite a bit during the night. With ice and pain mediction, pt has had a better night. Pt has his call light within reach.
[2020-09-09 06:24] LABS: HEMATOCRIT 38.8 % (42.0-52.0); HEMOGLOBIN 12.4 g/dl (13.5-18.0)
--- NOTE | 2020-09-09 07:10 | NUR ---
Shift assessment completed. Awake, alert and oriented sitting in bed. O2 @ 1.5L/NC. Aquacell dressing to Rt shoulder CDI, sling to Rt arm. Intermittent ice to Rt shoulder. SCDs on. Encouraged to use IS raised [id number]. INT to Lt forearm, no reddness or swelling.
[2020-09-09 08:03] VITALS: BP 165/72; PULSE 76; TEMP 98.6
[2020-09-09 10:35] VITALS: BP 128/62; PULSE 60; TEMP 98
--- NOTE | 2020-09-09 10:37 | NUR ---
Resting in recliner,Rt shoulder dressing CDI, ice applied to rt shoulder per patient request.
--- NOTE | 2020-09-09 14:10 | NUR ---
PATIENT DISCHARGING HOME VIA WC TO PERSONAL VEHICLE WHERE DAUGHTER IS WAITING. GAVE DISCHARGE INSTRUCTIONS, PRESCRIPTIONS AND DISCUSSED F/U APTS. ANSWERED ALL QUESTIONS/CONCERNS. DC'D LEFT AC IV, COVERED SITE WITH GAMALIKE & COBAN. PATIENT PACKED PERSONAL BELONGINGS. PATIENT ESCORTED OUT.
== END 2020-09-09 14:10 | disposition home or self-care (01) | DRG 483 ==
LOC: JCC 09-08 05:20
PROVIDERS: ADMIT Orthopaedic Surgery Sports Medicine
PROC: 0RRJ0JZ Replacement of Right Shoulder Joint with Synthetic Substitute, Open Approach (ICD-10-PCS; principal; 2020-09-08 07:30)
DX: M19.011 Primary osteoarthritis, right shoulder (principal)
CPT/HCPCS: A9284; C1713; C1776; J0171; J0690; J1170; J1885; J2250; J2405; J2704; J2795; J3010; J3370

== ENCOUNTER → 2021-02-25 | Outpatient (CLI) | payer MEDICARE, OTHER ==
[~2021-02-25] MED LIST changes: +ASPIRIN E.C. 8181 MG PO; +CENTRUM SILVER1 CTB PO; +HCTZ12.5TAB; +JANUVIA 100MG100 MG PO; +LAMICTAL 100MG100 MG PO; +LAMICTAL XR100 MG PO; +LAMICTAL XR50 MG PO; +LASIX 20MG TABL20 MG PO
== END ==
LOC: COL.RAD 09:21
DX: Z47.1 Aftercare following joint replacement surgery (principal); S43.001A Unspecified subluxation of right shoulder joint, initial encounter; M19.011 Primary osteoarthritis, right shoulder; M67.813 Other specified disorders of tendon, right shoulder; Z96.611 Presence of right artificial shoulder joint

== ENCOUNTER → 2021-11-18 | Outpatient (CLI) | payer MEDICARE, OTHER | LOC: COL.RAD 11:39 | DX: C64.2 Malignant neoplasm of left kidney, except renal pelvis (principal) | CPT/HCPCS: A9585 ==

== ENCOUNTER 2021-12-31 15:30 | Inpatient (IN) | payer MEDICARE, OTHER ==
[~2021-12-31] VITALS: Ht 180.3 cm; Wt 115.4 kg
[~2021-12-31 15:30] MED LIST changes: -MELATIN 3 MG-11 TAB PO; +MELATONIN5 M1 SL
[2022-01-11] VITALS (9 sets, daily range): BP systolic 128–158; BP diastolic 38–81; PULSE 24–72; TEMP 97.5–98.1
[2022-01-11] MEDS ORDERED: BACTRIM DS 8001 TAB PO (11:19)
[2022-01-11] MEDS ORDERED: JANUMXR1000-50 PO (11:21)
--- NOTE | 2022-01-11 19:28 | NUR ---
THE PATIENT HAS HAD UNEVENTFUL EVENING SINCE ARRIVAL FROM OR. IRON DRAIN ON THE LEFT ABD HAS PUT OUT 65ML OF BLOODY DRAINAGE. PT HAS DENIED ANY SEVERE PAIN UNTIL THIS TIME, MYSQL DATABASE DEVELOPER RN AWARE OF THE PAIN. BRAY CATHETER IS DRAINING DARK URINE WITH BLOOD IN IT. REPORT GIVEN TO THEO ORDONEZ. NO FURTHER CONCERNS.
--- NOTE | 2022-01-11 20:00 | NUR ---
Pt. sitting up in bed. Pt. is A&OX3, assessment complete. IV to rt. forearm patent, IV fluids infusing per orders. Pt. reports pain at a 9 on pain scale, giving pain meds per mar at this time. Pt. denies further needs, call light within reach.
[2022-01-12 00:08] VITALS: BP 125/62; PULSE 65; TEMP 98.6
[2022-01-12 03:44] VITALS: BP 117/57; PULSE 61; TEMP 98.6
--- NOTE | 2022-01-12 06:13 | NUR ---
Newell catheter discontinued at this time. pt. tolerated well.
[2022-01-12 06:29] LABS: HEMATOCRIT 38.1 % (42.0-52.0); HEMOGLOBIN 12.4 g/dl (13.5-18.0)
[2022-01-12 06:52] LABS: CALCIUM 8.1 mg/dL (8.4-10.2); CREATININE, serum 2.69 mg/dL (0.72-1.25); POTASSIUM 5.4 mmol/L (3.5-4.5)
[2022-01-12 07:25] VITALS: BP 109/53; PULSE 63; TEMP 98.4
--- NOTE | 2022-01-12 09:51 | NUR ---
Initial visit; Patient thanked Finance Lead for looking in on him and offering God's blessings.
--- NOTE | 2022-01-12 10:40 | NUR ---
Staff Electrical Engineer met with patient to discuss discharge planning. Patient lives alone in between [facility] and sees Dr. Begum for primary care. Patient obtains medications from [facility] and does does not use any DME at this time. Patient reports independence with ADLS and plans to return home at time of discharge. Patient has Advance Directives in EMR which designates his two children, Tarik (ph#[phone]) and Becky. Patient advised he is . Discharge Plan: Home
[2022-01-12 11:31] VITALS: BP 106/65; PULSE 109; TEMP 97.8
[2022-01-12 15:22] VITALS: BP 130/86; PULSE 62; TEMP 97.7
--- NOTE | 2022-01-12 19:30 | NUR ---
Pt. sitting up in bed. Pt. is A&OX3, assessment complete. INT to rt. forearm patent. Abd. incisions x7 cdi, IRON drain to lt abd. with minimal bloody drainage. Pt. reports pain to abd at a 6 on pain scale, giving pain meds per orders. Pt. denies further needs.
[2022-01-12 21:02] VITALS: BP 127/60; PULSE 68; TEMP 98.9
[2022-01-13 00:28] VITALS: BP 118/66; PULSE 68; TEMP 98
[2022-01-13 03:33] VITALS: BP 129/57; PULSE 62; TEMP 98.2
[2022-01-13 06:15] LABS: HEMATOCRIT 38.9 % (42.0-52.0); HEMOGLOBIN 12.8 g/dl (13.5-18.0)
[2022-01-13 06:28] LABS: CALCIUM 8.4 mg/dL (8.4-10.2); CREATININE, serum 2.92 mg/dL (0.72-1.25); POTASSIUM 4.8 mmol/L (3.5-4.5)
[2022-01-13 07:40] VITALS: BP 139/62; PULSE 62; TEMP 97.9
--- NOTE | 2022-01-13 08:47 | NUR ---
PATIENT'S IRON DRAIN REMOVED, PER ORDER. SUTURE REMOVED, IRON DRAIN REMOVED WITHOUT INCIDENT. 25ML BLOODY DRAINAGE IN DRAIN. GAUZE AND TAPE PLACED OVER WOUND.
[2022-01-13 12:00] VITALS: BP 153/69; PULSE 62; TEMP 98.4
[2022-01-13] MEDS ORDERED: ROXICODONE 55 MG/TAB PO (12:34)
--- NOTE | 2022-01-13 13:05 | NUR ---
IV REMOVED, CATHETER INTACT. DISCHARGE PAPERS REVIEWED AND PATIENT VERBALIZED UNDERSTANDING. PATIENT SIGNED PAPERWORK. PATIENT DRESSED AND WAITING FOR RIDE.
== END 2022-01-13 14:02 | disposition home or self-care (01) | DRG 658 ==
LOC: INPTSU 01-11 09:03 → SURG 01-11 12:15
PROVIDERS: ADMIT Urology
PROC: 8E0W4CZ Robotic Assisted Procedure of Trunk Region, Percutaneous Endoscopic Approach (ICD-10-PCS; 2022-01-11)
PROC: 0TB14ZZ Excision of Left Kidney, Percutaneous Endoscopic Approach (ICD-10-PCS; principal; 2022-01-11 12:15)
DX: C64.2 Malignant neoplasm of left kidney, except renal pelvis (principal); N18.9 Chronic kidney disease, unspecified; E87.5 Hyperkalemia
CPT/HCPCS: A4314; A9284; J0690; J1100; J2250; J2405; J2704; J2795; J3010; J7120

== ENCOUNTER → 2024-01-23 | Outpatient (CLI) | payer MEDICARE ==
[~2024-01-23] MED LIST changes: +BACTRIM DS 8001 TAB PO; +CEPHALEXIN500 M1 PO; -HCTZ12.5TAB; +HCTZ12.5TAB PO; +JANUMXR1000-50 PO; +NOVOLOG 100U100 U/M1 SQ; +TRULICITY1.5 MG/0.5 SQ
== END ==
LOC: COL.RAD 08:33
DX: Z85.528 Personal history of other malignant neoplasm of kidney (principal); Z98.890 Other specified postprocedural states

== ENCOUNTER → 2024-01-25 | Outpatient (CLI) | payer MEDICARE, OTHER | LOC: COL.RAD 10:56 | DX: M51.36 Other intervertebral disc degeneration, lumbar region (principal); M48.061 Spinal stenosis, lumbar region without neurogenic claudication ==

== ENCOUNTER → 2024-03-04 | Outpatient (CLI) | payer MEDICARE, OTHER | LOC: DIA.ED 08:39 | DX: E11.59 Type 2 diabetes mellitus with other circulatory complications (principal); E11.40 Type 2 diabetes mellitus with diabetic neuropathy, unspecified; Z79.4 Long term (current) use of insulin; E78.5 Hyperlipidemia, unspecified; I10 Essential (primary) hypertension ==

== ENCOUNTER → 2024-04-04 | Outpatient (CLI) | payer MEDICARE, OTHER | LOC: MHCPAIN 11:00 | DX: M54.50 Low back pain, unspecified (principal); M48.061 Spinal stenosis, lumbar region without neurogenic claudication; M47.816 Spondylosis without myelopathy or radiculopathy, lumbar region; E11.40 Type 2 diabetes mellitus with diabetic neuropathy, unspecified; Z79.4 Long term (current) use of insulin | CPT/HCPCS: G0463 ==

== ENCOUNTER → 2024-05-14 | Outpatient (CLI) | payer MEDICARE, OTHER | LOC: COL.RAD 10:49 | DX: M16.0 Bilateral primary osteoarthritis of hip (principal) ==

== ENCOUNTER → 2024-05-14 | Outpatient (CLI) | payer MEDICARE, OTHER | LOC: MHCPAIN 09:41 | DX: M54.50 Low back pain, unspecified (principal); M48.061 Spinal stenosis, lumbar region without neurogenic claudication; M47.816 Spondylosis without myelopathy or radiculopathy, lumbar region; E11.40 Type 2 diabetes mellitus with diabetic neuropathy, unspecified; Z79.4 Long term (current) use of insulin; M25.552 Pain in left hip | CPT/HCPCS: G0463 ==

== ENCOUNTER → 2024-07-02 | Outpatient (CLI) | payer MEDICARE, OTHER | LOC: MHCPAIN 09:41 | DX: M54.50 Low back pain, unspecified (principal); M48.061 Spinal stenosis, lumbar region without neurogenic claudication; M47.816 Spondylosis without myelopathy or radiculopathy, lumbar region; M16.12 Unilateral primary osteoarthritis, left hip | CPT/HCPCS: G0463 ==